=== PATIENT | female | born 1990 | race Hispanic/Latino ===

== ENCOUNTER 2016-12-10 09:54 | Day surgery (SDC) | payer BC ==
[2016-12-10] MEDS ORDERED: NACL 0.9% 500 ML 500 ML IV SCH (11:00)
[2016-12-10] MEDS ORDERED: ATROPINE 0.1% (CARDIAC) ONE (12:29)
[2016-12-10] MEDS ORDERED: NITROSTAT SL ONE ×2 (12:29→12:41)
--- NOTE | 2016-12-10 13:00 | Short Stay Summary ---
Short Stay Documentation Date of service: 12/10/16 - History H&P: obtained from office - Allergies and Medications Current Medications: Allergies codeine Adverse Reaction (Verified 12/10/16 11:34) Shortness of Breath hydromorphone HCl [From Dilaudid] Adverse Reaction (Verified 12/10/16 11:34) Hives Home Medications Medication Instructions Recorded Confirmed Last Taken Type Dexlansoprazole Dr WilsonNf) [Dexilant 60 mg PO DAILY 12/10/16 12/10/16 12/10/16 08: [address] Alanis)] Norgestimate-Ethinyl Estradiol 1 tab PO DAILY 12/10/16 12/10/16 12/10/16 08:00 History [Lane-Linyah 28 Tablet] Active Medications Sodium Chloride (Nacl 0.9% 500 Ml) 500 mls @ 50 mls/hr IV DIRECT JACQUIE Last Admin: 12/10/16 11:34 Dose: 50 mls/hr - Physical exam General appearance: no acute distress Integumentary: no rash HEENT: Atraumatic Lungs: Clear to auscultation Breasts: deferred Heart: Regular rate Gastrointestinal: normal Female Genitourinary: deferred Rectal Exam: deferred Extremities: no ischemia Neurological: Normal gait - Brief post op/procedure progress note Date of procedure: 12/10/16 Pre-op diagnosis: Syncope Post-op diagnosis: same Procedure: TTT Anesthesia: none Findings: See report Surgeon: CARLOS EDUARDO FREGOSO Estimated blood loss: none Pathology: none Condition: stable - Hospital course Hospital course: uneventful - Disposition Condition at discharge: Good Disposition: DISCHARGED TO HOME OR SELFCARE Short Stay Discharge Plan Activity: advance as tolerated Weight Bearing Status: Weight Bear as Tolerated Diet: regular Follow up with: DANIEL THORNTON MD [Primary Care Provider] - 7 Days
[2016-12-10 13:28] VITALS: BP 108/70
--- NOTE | 2016-12-10 13:32 | Procedure Note ---
TILT TABLE TEST INDICATION FOR PROCEDURE: Syncope. ORDERING PHYSICIAN: Zhang Whitten MD DESCRIPTION OF PROCEDURE: After obtaining written consent, the patient was brought to the ammunition assembly i laborer area. The patient was secured to the tilt table test. Her baseline blood pressure was 142/89 with a heart rate of 93 beats per minute. The patient was tilted to 85 degrees from horizontal. The patient was left in this position for 10 minutes. At the end of which her blood pressure was 124/85 with a heart rate of 96 beats per minute. Subsequently, the patient was given 0.4 mg of sublingual nitroglycerin. Her heart rate increased to 145 beats per minute, maximum recorded and her blood pressure lowest recorded was 115/70. The patient denied any dizziness, lightheadedness, sweatiness, and no episodes of syncope were reported. No evidence of arrhythmias, no evidence of bradyarrhythmias, no evidence of pauses. IMPRESSION: This is a negative tilt table test with no evidence of a cardioinhibitory or vasodepressor response. RECOMMENDATION: Follow up with referring support merchandiser. JOB# [id number] JUMANA/TONYA
== END 2016-12-10 13:20 | disposition home or self-care (01) ==
LOC: OPU 09:54
PROVIDERS: ATTEND Internal Medicine Cardiovascular Disease
DX: I47.1 Supraventricular tachycardia (principal); R55 Syncope and collapse; K21.9 Gastro-esophageal reflux disease without esophagitis; I10 Essential (primary) hypertension; Z72.89 Other problems related to lifestyle
CPT/HCPCS: 81025; 93660; J7040; J0461